=== PATIENT | female | born 1935 | race Caucasian/White ===

== ENCOUNTER 2016-06-05 08:22 | Emergency (ER) | payer MEDICARE, BC ==
[~2016-06-05] VITALS: Ht 154.9 cm; Wt 44.5 kg
[~2016-06-05 08:22] MED LIST: ALEN70TA3 PO; ASCO1TAB PO; AZEL137S NS; CALC500P30 PO; DOXE75CA4 PO; FLUT1DIS5 IH; GUAI50GR PO; LISI-607 PO; MONT10TA22 PO; MULT-74 PO
[2016-06-05 08:28] VITALS: BP 145/75
[2016-06-05] MEDS ORDERED: LIDOCAINE 1%-EPI 1:100,000 50 ML VIAL IJ ONE (09:00)
== END 2016-06-05 09:21 | disposition home or self-care (01) ==
LOC: ER 08:25
DX: S81.811A Laceration without foreign body, right lower leg, initial encounter (principal); I10 Essential (primary) hypertension; J45.909 Unspecified asthma, uncomplicated; Z88.1 Allergy status to other antibiotic agents; G95.20 Unspecified cord compression; W01.0XXA Fall on same level from slipping, tripping and stumbling without subsequent striking against object, initial encounter; Y93.89 Activity, other specified; Y92.89 Other specified places as the place of occurrence of the external cause; Y99.8 Other external cause status
CPT/HCPCS: 12002; 99283; A4606; A6402; A6403; J3490 ×2; Z7610

== ENCOUNTER 2016-06-27 10:30 | Outpatient (CLI) | payer MEDICARE, BC | END 2016-06-27 23:59 | disposition home or self-care (01) | DX: I96 Gangrene, not elsewhere classified (principal); S81.011D Laceration without foreign body, right knee, subsequent encounter; W01.10XD Fall on same level from slipping, tripping and stumbling with subsequent striking against unspecified object, subsequent encounter; G60.9 Hereditary and idiopathic neuropathy, unspecified; Z86.73 Personal history of transient ischemic attack (TIA), and cerebral infarction without residual deficits; I87.9 Disorder of vein, unspecified; R60.0 Localized edema; J45.998 Other asthma; Z79.899 Other long term (current) drug therapy; Z87.891 Personal history of nicotine dependence | CPT/HCPCS: 11042; 87070; 87077; A6209; A6402 ==

== ENCOUNTER 2016-07-04 11:02 | Outpatient (CLI) | payer MEDICARE, BC | END 2016-07-04 23:59 | disposition home or self-care (01) | LOC: WOU 11:02 | PROVIDERS: ATTEND Specialist | DX: I96 Gangrene, not elsewhere classified (principal); S81.011S Laceration without foreign body, right knee, sequela; L08.9 Local infection of the skin and subcutaneous tissue, unspecified; W01.10XS Fall on same level from slipping, tripping and stumbling with subsequent striking against unspecified object, sequela; I10 Essential (primary) hypertension; G62.9 Polyneuropathy, unspecified; J45.998 Other asthma; Z79.899 Other long term (current) drug therapy; Z87.891 Personal history of nicotine dependence | CPT/HCPCS: 11042; A6209 ×2; A6402 ==

== ENCOUNTER 2016-07-11 10:15 | Outpatient (CLI) | payer MEDICARE, BC | END 2016-07-11 23:59 | disposition home or self-care (01) | LOC: WOU 10:15 | PROVIDERS: ATTEND Specialist | DX: S81.011A Laceration without foreign body, right knee, initial encounter (principal); I10 Essential (primary) hypertension; G62.9 Polyneuropathy, unspecified; J45.998 Other asthma; Z79.899 Other long term (current) drug therapy; Z87.891 Personal history of nicotine dependence; M21.372 Foot drop, left foot; I87.2 Venous insufficiency (chronic) (peripheral); L08.9 Local infection of the skin and subcutaneous tissue, unspecified; W01.10XA Fall on same level from slipping, tripping and stumbling with subsequent striking against unspecified object, initial encounter; Y92.89 Other specified places as the place of occurrence of the external cause | CPT/HCPCS: 11042; A6402 ==

== ENCOUNTER 2016-07-25 10:25 | Outpatient (CLI) | payer MEDICARE, BC | END 2016-07-25 23:59 | disposition home or self-care (01) | LOC: WOU 10:25 | PROVIDERS: ATTEND Specialist | DX: I96 Gangrene, not elsewhere classified (principal); S81.011S Laceration without foreign body, right knee, sequela; W01.10XS Fall on same level from slipping, tripping and stumbling with subsequent striking against unspecified object, sequela; M21.372 Foot drop, left foot; G62.9 Polyneuropathy, unspecified; J45.998 Other asthma | CPT/HCPCS: A6209; A6402 ==

== ENCOUNTER 2016-08-08 09:28 | Outpatient (CLI) | payer MEDICARE, BC | END 2016-08-08 23:59 | disposition home or self-care (01) | LOC: WOU 09:28 | PROVIDERS: ATTEND Specialist | DX: S81.011A Laceration without foreign body, right knee, initial encounter (principal); W19.XXXA Unspecified fall, initial encounter; Y92.9 Unspecified place or not applicable; Y99.8 Other external cause status; J45.998 Other asthma; G62.9 Polyneuropathy, unspecified; I10 Essential (primary) hypertension; Z87.891 Personal history of nicotine dependence | CPT/HCPCS: 11042; A6402; A6209 ==

== ENCOUNTER 2016-08-22 10:25 | Outpatient (CLI) | payer MEDICARE, BC | END 2016-08-22 23:59 | disposition home or self-care (01) | LOC: WOU 10:25 | PROVIDERS: ATTEND Specialist | DX: G62.9 Polyneuropathy, unspecified (principal); I10 Essential (primary) hypertension; Z87.891 Personal history of nicotine dependence | CPT/HCPCS: A6402; G0463 ==

== ENCOUNTER 2016-08-29 10:13 | Outpatient (CLI) | payer MEDICARE, BC | END 2016-08-29 23:59 | disposition home or self-care (01) | LOC: WOU 10:13 | PROVIDERS: ATTEND Specialist | DX: I83.022 Varicose veins of left lower extremity with ulcer of calf (principal); L97.221 Non-pressure chronic ulcer of left calf limited to breakdown of skin; S81.011D Laceration without foreign body, right knee, subsequent encounter; W20.8XXD Other cause of strike by thrown, projected or falling object, subsequent encounter; G62.9 Polyneuropathy, unspecified; I10 Essential (primary) hypertension; Z87.891 Personal history of nicotine dependence; J45.998 Other asthma | CPT/HCPCS: 11042; 87070; A6209; A6402 ==

== ENCOUNTER 2016-09-05 09:20 | Outpatient (CLI) | payer MEDICARE, BC | END 2016-09-05 23:59 | disposition home or self-care (01) | LOC: WOU 09:20 | PROVIDERS: ATTEND Specialist | DX: S81.011D Laceration without foreign body, right knee, subsequent encounter (principal); W01.10XD Fall on same level from slipping, tripping and stumbling with subsequent striking against unspecified object, subsequent encounter; G62.9 Polyneuropathy, unspecified; M21.372 Foot drop, left foot; I83.022 Varicose veins of left lower extremity with ulcer of calf; L97.222 Non-pressure chronic ulcer of left calf with fat layer exposed; R29.6 Repeated falls; J45.998 Other asthma; I10 Essential (primary) hypertension; Z79.899 Other long term (current) drug therapy | CPT/HCPCS: A6209; A6402; G0463 ==

== ENCOUNTER 2016-09-26 14:15 | Outpatient (CLI) | payer MEDICARE, BC | END 2016-09-26 23:59 | disposition home or self-care (01) | LOC: WOU 14:15 | PROVIDERS: ATTEND Specialist | DX: I83.022 Varicose veins of left lower extremity with ulcer of calf (principal); J45.998 Other asthma; G62.9 Polyneuropathy, unspecified; Z87.891 Personal history of nicotine dependence; L97.212 Non-pressure chronic ulcer of right calf with fat layer exposed; M21.372 Foot drop, left foot; I10 Essential (primary) hypertension | CPT/HCPCS: 11042; A6402 ==

== ENCOUNTER 2016-10-03 14:30 | Outpatient (CLI) | payer MEDICARE, BC | END 2016-10-03 23:59 | disposition home or self-care (01) | LOC: WOU 14:30 | PROVIDERS: ATTEND Specialist | DX: I83.022 Varicose veins of left lower extremity with ulcer of calf (principal); L97.221 Non-pressure chronic ulcer of left calf limited to breakdown of skin; G62.9 Polyneuropathy, unspecified; J45.998 Other asthma; M21.372 Foot drop, left foot; Z87.891 Personal history of nicotine dependence | CPT/HCPCS: 11042; A6402 ==

== ENCOUNTER 2016-10-10 09:30 | Outpatient (CLI) | payer MEDICARE, BC | END 2016-10-10 23:59 | disposition home or self-care (01) | LOC: WOU 09:30 | PROVIDERS: ATTEND Specialist | DX: I83.022 Varicose veins of left lower extremity with ulcer of calf (principal); L97.221 Non-pressure chronic ulcer of left calf limited to breakdown of skin; J45.998 Other asthma; G62.9 Polyneuropathy, unspecified; R29.6 Repeated falls; Z87.891 Personal history of nicotine dependence | CPT/HCPCS: 15271; A6402; Q4131 ==

== ENCOUNTER 2016-10-17 10:25 | Outpatient (CLI) | payer MEDICARE, BC | END 2016-10-17 23:59 | disposition home or self-care (01) | LOC: WOU 10:25 | PROVIDERS: ATTEND Specialist | DX: I83.022 Varicose veins of left lower extremity with ulcer of calf (principal); L97.221 Non-pressure chronic ulcer of left calf limited to breakdown of skin; G62.9 Polyneuropathy, unspecified; J45.998 Other asthma; M21.372 Foot drop, left foot | CPT/HCPCS: 11042; 87070; A6402 ==

== ENCOUNTER 2016-10-24 08:30 | Outpatient (CLI) | payer MEDICARE, BC | END 2016-10-24 23:59 | disposition home or self-care (01) | LOC: WOU 08:30 | PROVIDERS: ATTEND Specialist | DX: I83.022 Varicose veins of left lower extremity with ulcer of calf (principal); L97.221 Non-pressure chronic ulcer of left calf limited to breakdown of skin; R29.6 Repeated falls; J45.998 Other asthma; G62.9 Polyneuropathy, unspecified; Z87.891 Personal history of nicotine dependence; M21.372 Foot drop, left foot; Z79.51 Long term (current) use of inhaled steroids | CPT/HCPCS: 11042; A6402; Z7610 ==

== ENCOUNTER 2016-11-07 10:30 | Outpatient (CLI) | payer MEDICARE, BC | END 2016-11-07 23:59 | disposition home or self-care (01) | LOC: WOU 10:30 | PROVIDERS: ATTEND Specialist | DX: I83.022 Varicose veins of left lower extremity with ulcer of calf (principal); L97.221 Non-pressure chronic ulcer of left calf limited to breakdown of skin; R29.6 Repeated falls; G62.9 Polyneuropathy, unspecified; J45.998 Other asthma; Z87.891 Personal history of nicotine dependence; I83.892 Varicose veins of left lower extremity with other complications | CPT/HCPCS: 11042; A6402 ==

== ENCOUNTER 2016-11-21 10:30 | Outpatient (CLI) | payer MEDICARE, BC | END 2016-11-21 23:59 | disposition home or self-care (01) | LOC: WOU 10:30 | PROVIDERS: ATTEND Specialist | DX: I83.022 Varicose veins of left lower extremity with ulcer of calf (principal); L97.821 Non-pressure chronic ulcer of other part of left lower leg limited to breakdown of skin; R29.6 Repeated falls; J45.998 Other asthma; G62.9 Polyneuropathy, unspecified; Z87.891 Personal history of nicotine dependence; M21.372 Foot drop, left foot | CPT/HCPCS: 11042; A6402 ==

== ENCOUNTER 2016-12-05 10:26 | Outpatient (CLI) | payer MEDICARE, BC | END 2016-12-05 23:59 | disposition home or self-care (01) | LOC: WOU 10:26 | PROVIDERS: ATTEND Specialist | DX: I83.022 Varicose veins of left lower extremity with ulcer of calf (principal); L97.221 Non-pressure chronic ulcer of left calf limited to breakdown of skin; J45.998 Other asthma; R29.6 Repeated falls; G62.9 Polyneuropathy, unspecified; I10 Essential (primary) hypertension; Z87.891 Personal history of nicotine dependence; M21.372 Foot drop, left foot; Z88.1 Allergy status to other antibiotic agents; Z79.899 Other long term (current) drug therapy | CPT/HCPCS: 11042; A6209; A6402 ==

== ENCOUNTER 2016-12-19 11:05 | Outpatient (CLI) | payer MEDICARE, BC | END 2016-12-19 23:59 | disposition home or self-care (01) | LOC: WOU 11:05 | PROVIDERS: ATTEND Specialist | DX: I83.022 Varicose veins of left lower extremity with ulcer of calf (principal); L97.221 Non-pressure chronic ulcer of left calf limited to breakdown of skin; R29.6 Repeated falls; J45.998 Other asthma; Z87.891 Personal history of nicotine dependence; M21.372 Foot drop, left foot; I10 Essential (primary) hypertension; G62.9 Polyneuropathy, unspecified | CPT/HCPCS: 11042; A6253; A6402; A6209 ==

== ENCOUNTER 2017-01-23 13:20 | Outpatient (CLI) | payer MEDICARE, BC | END 2017-01-23 23:59 | disposition home or self-care (01) | LOC: WOU 13:20 | PROVIDERS: ATTEND Specialist | DX: I83.022 Varicose veins of left lower extremity with ulcer of calf (principal); L97.221 Non-pressure chronic ulcer of left calf limited to breakdown of skin; G62.9 Polyneuropathy, unspecified; R29.6 Repeated falls; J45.998 Other asthma; I10 Essential (primary) hypertension; Z87.891 Personal history of nicotine dependence; Z79.899 Other long term (current) drug therapy | CPT/HCPCS: 11042; 87070-TC; 87075-TC; 87186-TC; A6209 ==

== ENCOUNTER 2017-01-30 10:35 | Outpatient (CLI) | payer MEDICARE, BC | END 2017-01-30 23:59 | disposition home or self-care (01) | LOC: WOU 10:35 | PROVIDERS: ATTEND Specialist | DX: I83.022 Varicose veins of left lower extremity with ulcer of calf (principal); L97.221 Non-pressure chronic ulcer of left calf limited to breakdown of skin; R29.6 Repeated falls; J45.998 Other asthma; G60.9 Hereditary and idiopathic neuropathy, unspecified; I10 Essential (primary) hypertension; Z87.891 Personal history of nicotine dependence; M21.372 Foot drop, left foot; Z88.1 Allergy status to other antibiotic agents | CPT/HCPCS: 11042; A6209; A6402 ==

== ENCOUNTER 2017-02-06 10:22 | Outpatient (CLI) | payer MEDICARE, BC | END 2017-02-06 23:59 | disposition home or self-care (01) | LOC: WOU 10:22 | PROVIDERS: ATTEND Specialist | DX: I83.022 Varicose veins of left lower extremity with ulcer of calf (principal); L97.222 Non-pressure chronic ulcer of left calf with fat layer exposed; L08.9 Local infection of the skin and subcutaneous tissue, unspecified; B95.8 Unspecified staphylococcus as the cause of diseases classified elsewhere; G62.9 Polyneuropathy, unspecified; R29.6 Repeated falls; J45.998 Other asthma; Z87.891 Personal history of nicotine dependence; Z79.51 Long term (current) use of inhaled steroids | CPT/HCPCS: 11042; A6402 ==

== ENCOUNTER 2017-02-14 13:06 | Outpatient (CLI) | payer MEDICARE, BC | END 2017-02-14 23:59 | disposition home or self-care (01) | LOC: RAD 13:06 | PROVIDERS: ATTEND Radiology Diagnostic Radiology | DX: S22.42XA Multiple fractures of ribs, left side, initial encounter for closed fracture (principal); M43.8X4 Other specified deforming dorsopathies, thoracic region; M51.34 Other intervertebral disc degeneration, thoracic region; M81.0 Age-related osteoporosis without current pathological fracture; M47.894 Other spondylosis, thoracic region; M41.84 Other forms of scoliosis, thoracic region; I70.0 Atherosclerosis of aorta; J98.11 Atelectasis; J84.9 Interstitial pulmonary disease, unspecified; X58.XXXA Exposure to other specified factors, initial encounter; Y93.89 Activity, other specified; Y92.89 Other specified places as the place of occurrence of the external cause; Y99.8 Other external cause status | CPT/HCPCS: 71100-TC; 72070-TC ==

== ENCOUNTER 2017-03-13 11:15 | Outpatient (CLI) | payer MEDICARE, BC | END 2017-03-13 23:59 | disposition home or self-care (01) | LOC: WOU 11:15 | PROVIDERS: ATTEND Specialist | DX: I83.028 Varicose veins of left lower extremity with ulcer other part of lower leg (principal); L97.821 Non-pressure chronic ulcer of other part of left lower leg limited to breakdown of skin; G62.9 Polyneuropathy, unspecified; J45.998 Other asthma; R29.6 Repeated falls; Z87.891 Personal history of nicotine dependence; M21.372 Foot drop, left foot | CPT/HCPCS: 11042; A6402 ==

== ENCOUNTER 2017-03-20 10:20 | Outpatient (CLI) | payer MEDICARE, BC | END 2017-03-20 23:59 | disposition home or self-care (01) | LOC: WOU 10:20 | PROVIDERS: ATTEND Specialist | PROC: 0HBLXZX Excision of Left Lower Leg Skin, External Approach, Diagnostic (ICD-10-PCS; principal; 2017-03-20) | DX: I83.022 Varicose veins of left lower extremity with ulcer of calf (principal); L97.221 Non-pressure chronic ulcer of left calf limited to breakdown of skin; R29.6 Repeated falls; G62.9 Polyneuropathy, unspecified; J45.998 Other asthma | CPT/HCPCS: 11100; 87070; 87075; 87077; 87186; 88305 ×2; A6402 ×3; J3490; 11042 ==

== ENCOUNTER 2017-03-27 09:25 | Outpatient (CLI) | payer MEDICARE, BC | END 2017-03-27 23:59 | disposition home or self-care (01) | LOC: WOU 09:25 | PROVIDERS: ATTEND Specialist | DX: I83.022 Varicose veins of left lower extremity with ulcer of calf (principal); L97.222 Non-pressure chronic ulcer of left calf with fat layer exposed; R29.6 Repeated falls; J45.998 Other asthma; G62.9 Polyneuropathy, unspecified | CPT/HCPCS: 11042; A6402 ==

== ENCOUNTER 2017-04-03 14:15 | Outpatient (CLI) | payer MEDICARE, BC | END 2017-04-03 23:59 | disposition home or self-care (01) | LOC: WOU 14:15 | PROVIDERS: ATTEND Specialist | DX: I83.022 Varicose veins of left lower extremity with ulcer of calf (principal); L97.222 Non-pressure chronic ulcer of left calf with fat layer exposed; R29.6 Repeated falls; J45.998 Other asthma; G62.9 Polyneuropathy, unspecified; Z87.891 Personal history of nicotine dependence; Z88.1 Allergy status to other antibiotic agents | CPT/HCPCS: 11042; A6402 ==

== ENCOUNTER 2017-04-24 09:55 | Outpatient (CLI) | payer MEDICARE, BC ==
[~2017-04-24 09:55] MED LIST changes: +ALBUTEROL FS 2.5 MG/3 ML VIAL.NEB ONE; +IPRATROPIUM NEB FS 0.5 MG/2.5 ML AMPUL.NEB ONE
== END 2017-04-24 23:59 | disposition home or self-care (01) ==
LOC: WOU 09:55
PROVIDERS: ATTEND Specialist
DX: I83.022 Varicose veins of left lower extremity with ulcer of calf (principal); L97.222 Non-pressure chronic ulcer of left calf with fat layer exposed; G62.9 Polyneuropathy, unspecified; J45.998 Other asthma; R29.6 Repeated falls; Z87.891 Personal history of nicotine dependence; I10 Essential (primary) hypertension
CPT/HCPCS: 11042; A6253; A6402

== ENCOUNTER 2017-05-01 14:40 | Outpatient (CLI) | payer MEDICARE, BC ==
[~2017-05-01 14:40] MED LIST changes: -ALBUTEROL FS 2.5 MG/3 ML VIAL.NEB ONE; -IPRATROPIUM NEB FS 0.5 MG/2.5 ML AMPUL.NEB ONE
== END 2017-05-01 23:59 | disposition home or self-care (01) ==
LOC: WOU 14:40
PROVIDERS: ATTEND Specialist
DX: I83.022 Varicose veins of left lower extremity with ulcer of calf (principal); L97.222 Non-pressure chronic ulcer of left calf with fat layer exposed; R29.6 Repeated falls; J45.998 Other asthma; G62.9 Polyneuropathy, unspecified; Z87.891 Personal history of nicotine dependence
CPT/HCPCS: 11042; A6402

== ENCOUNTER 2017-05-02 09:00 | Outpatient (CLI) | payer MEDICARE, BC | END 2017-05-02 23:59 | disposition home or self-care (01) | LOC: WOU 09:00 | PROVIDERS: ATTEND Specialist | DX: R60.0 Localized edema (principal) | CPT/HCPCS: 93971-TC ==

== ENCOUNTER 2017-05-22 10:30 | Outpatient (CLI) | payer MEDICARE, BC | END 2017-05-22 23:59 | disposition home or self-care (01) | LOC: WOU 10:30 | PROVIDERS: ATTEND Specialist | DX: I83.022 Varicose veins of left lower extremity with ulcer of calf (principal); L97.222 Non-pressure chronic ulcer of left calf with fat layer exposed; R29.6 Repeated falls; J45.998 Other asthma; G62.9 Polyneuropathy, unspecified; Z87.828 Personal history of other (healed) physical injury and trauma; I10 Essential (primary) hypertension; Z79.899 Other long term (current) drug therapy; Z79.52 Long term (current) use of systemic steroids | CPT/HCPCS: 11042; A6209 ×2; A6402; Z7610 ==

== ENCOUNTER 2017-05-29 09:00 | Outpatient (CLI) | payer MEDICARE, BC | END 2017-05-29 23:59 | disposition home or self-care (01) | LOC: WOU 09:00 | PROVIDERS: ATTEND Specialist | DX: I83.028 Varicose veins of left lower extremity with ulcer other part of lower leg (principal); L97.822 Non-pressure chronic ulcer of other part of left lower leg with fat layer exposed; R29.6 Repeated falls; J45.998 Other asthma; G62.9 Polyneuropathy, unspecified; Z87.891 Personal history of nicotine dependence; I10 Essential (primary) hypertension | CPT/HCPCS: 11042; A6209; A6402 ==

== ENCOUNTER 2017-06-05 11:24 | Outpatient (CLI) | payer MEDICARE, BC | END 2017-06-05 23:59 | disposition home or self-care (01) | LOC: WOU 11:24 | PROVIDERS: ATTEND Specialist | DX: I83.022 Varicose veins of left lower extremity with ulcer of calf (principal); L97.222 Non-pressure chronic ulcer of left calf with fat layer exposed; R29.6 Repeated falls; J45.998 Other asthma; Z87.891 Personal history of nicotine dependence; G62.9 Polyneuropathy, unspecified; M21.372 Foot drop, left foot; I10 Essential (primary) hypertension | CPT/HCPCS: 11042; 87070-TC; 87075-TC; 87186-TC; A6209; A6402 ==

== ENCOUNTER 2017-06-12 11:30 | Outpatient (CLI) | payer MEDICARE, BC | END 2017-06-12 23:59 | disposition home or self-care (01) | LOC: WOU 11:30 | PROVIDERS: ATTEND Specialist | DX: I83.022 Varicose veins of left lower extremity with ulcer of calf (principal); L97.222 Non-pressure chronic ulcer of left calf with fat layer exposed; R29.6 Repeated falls; G62.9 Polyneuropathy, unspecified; J45.998 Other asthma | CPT/HCPCS: 11042; A6209; A6402 ==

== ENCOUNTER → 2017-06-17 | Outpatient (CLI) | payer MEDICARE, BC | END | disposition home or self-care (01) | LOC: RAD 13:59 | PROVIDERS: ATTEND Specialist | DX: M86.8X7 Other osteomyelitis, ankle and foot (principal); S91.002A Unspecified open wound, left ankle, initial encounter; X58.XXXA Exposure to other specified factors, initial encounter; Y93.89 Activity, other specified; Y92.89 Other specified places as the place of occurrence of the external cause; Y99.8 Other external cause status | CPT/HCPCS: 73610-TC ==

== ENCOUNTER 2017-06-19 11:30 | Outpatient (CLI) | payer MEDICARE, BC | END 2017-06-19 23:59 | disposition home or self-care (01) | LOC: WOU 11:30 | PROVIDERS: ATTEND Specialist | DX: I83.012 Varicose veins of right lower extremity with ulcer of calf (principal); L97.212 Non-pressure chronic ulcer of right calf with fat layer exposed; J45.998 Other asthma; R29.6 Repeated falls; G62.9 Polyneuropathy, unspecified; Z87.891 Personal history of nicotine dependence; M21.372 Foot drop, left foot | CPT/HCPCS: 11042; A6402 ==

== ENCOUNTER 2017-06-26 11:29 | Outpatient (CLI) | payer MEDICARE, BC | END 2017-06-26 23:59 | disposition home or self-care (01) | LOC: WOU 11:29 | PROVIDERS: ATTEND Specialist | DX: I83.022 Varicose veins of left lower extremity with ulcer of calf (principal); L97.222 Non-pressure chronic ulcer of left calf with fat layer exposed; R29.6 Repeated falls; J45.998 Other asthma; G62.9 Polyneuropathy, unspecified; I10 Essential (primary) hypertension; Z87.891 Personal history of nicotine dependence; Z79.899 Other long term (current) drug therapy | CPT/HCPCS: 11042; A6402 ==